=== PATIENT | female | born 1950 | race Caucasian/White ===

== ENCOUNTER 2025-08-25 11:51 | Day surgery (SDC) | payer MEDICARE, MEDICAID, SELFPAY ==
--- NOTE | 2025-08-25 | PATH_ITS ---
[facility] Accession Number: [id number] No. of containers..03 Tissue . 01 Material submitted: . PART A: duodenum - DUODENAL BIOPSY PART B: gastrointestinal site - ANTRAL BIOPSY PART C: colon - SIGMOID . 01 Diagnosis: Part A: DUODENAL BIOPSY: Duodenal mucosa with mild reactive changes suggestive of peptic duodenitis. No active inflammation and no evidence of celiac disease. . Part B: ANTRAL BIOPSY: Gastric mucosa with mild chronic inflammation and intestinal metaplasia. No Helicobacter organisms identified. No dysplasia or malignancy identified. . Part C: SIGMOID: Colonic mucosa with no diagnostic alterations. No active inflammation, granulomas, dysplasia, or malignancy identified. No evidence of colitis. [facility] 09/04/20251523 Local . 01 Electronically signed: . Huber Garcia MD, Pathologist NPI- [id number] . 01 Gross description: . . . . Received three formalin filled containers, each labeled with the patient's name. . A. In a container labeled duodenal is one fragment of pizarro, soft tissue which measures 0.2 x 0.1 x 0.1 cm. The specimen is totally submitted in cassette A. . B. In a container labeled antral biopsy are two fragments of pizarro, soft tissue which range in size from 0.2 x 0.2 x 0.1 cm to 0.5 x 0.2 x 0.2 cm. All fragments are totally submitted in cassette B. . C. In a container labeled sigmoid is one fragment of pizarro, soft tissue which measures 0.4 x 0.3 x 0.2 cm. The specimen is totally submitted in cassette C. [place] [place][id number][place] /[facility] 09/04/20251523 Local . 01 Microscopic: . Part B: ANTRAL BIOPSY: An immunohistochemical stain was performed to evaluate for Helicobacter organisms and is negative. The control stains appropriately. * This test was developed and the performance characteristics were validated by [facility]. It has not been cleared or approved by the Food and Drug Administration. . 01 Pathologist provided ICD-10: K29.50, K29.80, K31.A0 . 01 CPT . 636109, 809000, 233061, [id number] Specimen Comment: A courtesy copy of this report has been sent to [facility]ology Performed at: [address] [address], [place], [place] [id number] MD Huber Garcia MD Phone: [phone]
--- NOTE | 2025-08-25 06:25 | PM.PREOP ---
Pre-operative Note Interval Note History & Physical reviewed/Exam performed by Physician: Yes Changes to H&P: No ASA Class (for procedural sedation): II
[2025-08-25] MEDS: LACTATED RINGERS 1,000 ML 42 ML IV (12:39)
[2025-08-25 12:40] VITALS: BP 146/75; PULSE 50; RESP 16; TEMP 36.2; O2SAT 97
--- NOTE | 2025-08-25 13:18 | P.OP.EGD&C_ITS ---
Operative Date/Time/Diagnoses Date of procedure: 08/25/25 Time of procedure: 13:49 Pre-op diagnosis: N/V, bloating Post-op diagnosis: other (antritis, duodenitis, hyperplastic polyps in rectosigmoid) Procedure & Clinicians Study performed: EGD, colonoscopy with biopsy Same procedure(s) as scheduled: Yes Indications: 74yo F with abdominal bloating, n/v Surgeon: Aubrey Merino Anesthesia Type: MAC +/- Procedure Notes SCOAP/Timeout: Performed Procedure in detail: EGD Informed consent was obtained. The procedure, its risks, benefits, and alternatives were discussed. Patient understood and agreed to proceed. The patient was placed in the left lateral decubitus position with head elevated. Sedation given per anesthesia. The video endoscope was inserted into the oropharynx and guided under direct vision into the esophagus, stomach, and duodenum which were carefully examined. The scope was retroflexed to examine the hiatus and gastroesophageal junction. Antral biopsies were obtained for Helicobacter pylori. The patient tolerated the procedure very well. There were no apparent complications. Significant EGD findings: Z-line noted at: 38cm Duodenitis, significant, biopsies taken for H pylori Antritis, antrum, significant, biopsies taken for H pylori Gastric polyps, benign appearing, consistent with PPI use No hiatal hernia or esophagitis Colonoscopy Patient placed in left lateral recumbent position. Time out was performed. Procedural sedation was administered by anesthesia. Examination began with a thorough inspection of the perianal area. There was no evidence of fissures, fistulae, external hemorrhoids or cutaneous malignancy. The colonoscope was then placed into the rectum and the lumen was insufflated with carbon dioxide. The scope was carefully advanced forward. Ultimately the cecum was intubated and confirmed by identification of the ileocecal valve, the appendiceal orifice and the confluence of the taenia. The scope was then slowly withdrawn examining the colon thoroughly in all directions. In the rectum, retroflexion of the scope was performed for inspection of the distal rectum and anal canal. ?Significant colonoscopy findings: ?1. Quality of the preparation-good, [place] 2-3, improved with irrigation/suction ?2. Hyperplastic polyps at rectosigmoid junction, rectum, one 3mm polyp biopsied with cold forceps for pathology Scope withdrawal time: 8 Findings: gastritis, polyp and other findings (duodenitis) Specimen(s): other (biopsies) Complications: none Impression: Significant duodenitis, antral gastritis, H pylori appearance Hyperplastic polyps in rectosigmoid, rectum Post-procedure Recommendations: Colonscopy in 10 years and Will call with biopsy results Plan for aftercare: PACU then home BID PPI H pylori regimen, emperic Await biopsies Follow up: as needed Disposition: PACU
[2025-08-25 13:49] VITALS: BP 137/75; PULSE 51; RESP 15; TEMP 36.1; O2SAT 99
[2025-08-25 13:55] VITALS: BP 165/74; PULSE 58; RESP 19; O2SAT 97
[2025-08-25 14:00] VITALS: BP 140/74; PULSE 46; RESP 23; TEMP 36.1; O2SAT 99
[2025-08-25 14:03] VITALS: PULSE 45; RESP 20; O2SAT 98
[2025-08-25 14:30] VITALS: BP 158/84; PULSE 50; RESP 16; O2SAT 97
== END 2025-08-25 14:34 | disposition home or self-care (01) ==
PROVIDERS: PCP Family Medicine; Referring Provider Surgery; Visit Provider Surgery
PROC: 0DJ08ZZ Inspection of Upper Intestinal Tract, Via Natural or Artificial Opening Endoscopic (ICD-10-PCS; CPT 45380; principal; 2025-08-25 13:00)
PROC: 0DJD8ZZ Inspection of Lower Intestinal Tract, Via Natural or Artificial Opening Endoscopic (ICD-10-PCS; CPT 45378; 2025-08-25 13:00)
DX: R11.2 Nausea with vomiting, unspecified (principal); R14.0 Abdominal distension (gaseous); K29.50 Unspecified chronic gastritis without bleeding; K29.80 Duodenitis without bleeding; K31.A0 Gastric intestinal metaplasia, unspecified
CPT/HCPCS: 45380; 43239; J2704; J7120

== ENCOUNTER → 2025-10-17 10:10 | Outpatient (CLI) | payer MEDICARE, MEDICAID, SELFPAY ==
[2025-10-17 10:43] LABS: Add Manual Diff / Slide Review NO; Hematocrit 43.7 % (36-46); Hemoglobin 14.8 g/dL (12.0-16.0); Lymphocytes Absolute Auto 1800 /uL (1100-4500); Mean Corpuscular HGB Conc 33.8 % (30-36); Mean Corpuscular Hemoglobin 29.9 PG (26-34); Mean Corpuscular Volume 88.4 fL (80-100); Platelet Count 358 X10^3/uL (150-400)
[2025-10-17 10:52] LABS: Hemoglobin A1C% w Est Avg Glu 6.1 % (4.0-6.0)
[2025-10-17 11:01] LABS: Alanine Aminotransferase 30 IU/L (<35); Albumin 4.6 g/dL (3.5-5.0); Albumin Globulin Ratio 1.4 (1.0-2.8); Alkaline Phosphatase 111 U/L (38-126); Blood Urea Nitrogen 25 mg/dL (7-17); Calcium 10.0 mg/dL (8.4-10.2); Carbon Dioxide 30 mmol/L (22-32); Chloride 106 mmol/L (98-107); Cholesterol 247 mg/dL (140-199); Estimated Glomerular Filt Rate > 60 mL/min (>60); Globulin 3.4 g/dL (1.7-4.1); Glucose 115 mg/dL (70-99); HDL Cholesterol 48 mg/dL (40-60); HEMOLYSIS < 15 (0-50); Potassium 4.3 mmol/L (3.4-5.1); Sodium 142 mmol/L (137-145); Total Protein 8.0 g/dL (6.3-8.2); Triglycerides 211 mg/dL (35-150)
[2025-10-17 11:37] LABS: TSH w/ Reflex to FT4 0.09 uIU/mL (0.47-4.68)
[2025-10-17 15:10] LABS: Free T4, Direct Thyroxine 1.66 ng/dL (0.78-2.19)
== END ==
PROVIDERS: PCP Family Medicine; Referring Provider Family Medicine; Visit Provider Family Medicine
DX: E03.9 Hypothyroidism, unspecified (principal); I12.9 Hypertensive chronic kidney disease with stage 1 through stage 4 chronic kidney disease, or unspecified chronic kidney disease; N18.2 Chronic kidney disease, stage 2 (mild)
CPT/HCPCS: 36415; 80053; 80061; 83036; 84439; 84443; 85025